=== PATIENT | female | born 1985 | race Caucasian/White ===

== ENCOUNTER 2017-02-09 00:25 | Outpatient (CLI) | payer MEDICAID ==
[~2017-02-09] VITALS: Ht 160 cm; Wt 78.7 kg
[2017-02-09 00:34] VITALS: Ht 160 cm; Wt 78.7 kg
[2017-02-09] MEDS ORDERED: PRENAT PO (00:53)
[2017-02-09] MEDS ORDERED: FERR325C PO (00:53)
[2017-02-09 00:58] VITALS: BP 116/64; PULSE 89; RESP 18
[2017-02-09 01:55] LABS: ADD UMIC NO; URINE BILIRUBIN (Dip) NEGATIVE (NEGATIVE); URINE BLOOD (Dip) NEGATIVE (NEGATIVE); URINE COLOR LT. YELLOW (YELLOW); URINE KETONES (Dip) NEGATIVE (NEGATIVE); URINE LEUKOCYTE ESTERASE (Dip) NEGATIVE (NEGATIVE); URINE NITRITE (Dip) NEGATIVE (NEGATIVE); URINE TOTAL PROTEIN (Dip) NEGATIVE (NEGATIVE); URINE UROBILINOGEN (Dip) 0.2 E.U./dL (0.1-1.0)
--- NOTE | 2017-02-09 04:11 | RADRPT ---
PROCEDURE: Biophysical profile. CLINICAL INDICATION: Pelvic pain. TECHNIQUE: Multiple sonographic images of the pelvis were obtained with transabdominal technique. COMPARISON: No prior studies are available for comparison. FINDINGS: There is a single living intrauterine gestation with the fetus in a vertex position. The placenta i s anterior in location, grade II. heart tones of 134 beats per minute are identified. There i s normal amniotic fluid volume with an DUDLEY of 13.1 cm. breathing movements = 2 Gross body movements = 2 tone = 2 Qualitative AFV = 2 IMPRESSION: Biophysical profile 8 out of 8. .Matthew Velásquez MD, MD Date Time Electronically viewed and signed by .Matthew Velásquez MD, MD on 02/09/2017 04:11 .T/
--- NOTE | 2017-02-09 04:21 | PN ---
Date/Time of Note Date/Time of Note DATE: 02/09/17 TIME: 04:17 OB Subjective Subjective Subjective 31 yo P2 @ 35.5 wks, w abdominal pain, r/o PTL good FM, no VB, no LOF OB Objective Objective Objective 106/53, 89, 18, 98.4 Abdomen- gravid, n/t SVE- l/c/p; unchanged after 2 hrs u/a neg Abdomen: WNL Cervical Dilatation: None Effacement: 0% Station: -3 Heart Rate: 120's Accelerations: Accelerations Present Decelerations: No Decelerations Varibility: Moderate Contractions on Admission: None Intensity: Mild OB Assessment/Plan Other Assessment: 31 yo P2 @ 35 wks, r/o PTL - reassuring satus - not in labor Other plan: d/c home f/u w her clinic MARY CANADA MD Feb 09, 2017 04:21
--- NOTE | 2017-02-09 05:35 | TRIAGE ---
OB Triage Datetime Report Generated by CPN: 02/09/2017 05:34 Datetime: 02/09/2017 04:20 Stage of : OB Triage Labor Evaluation Frequency: 0 Monitor Mode: External Resting Tone [place]: Relaxed Heart Rate FHR Baseline Rate: 120 Monitor Mode: External US Variability: Moderate 6-25 bpm Accelerations: 15X15 Decelerations: None Category: Category I Datetime: 02/09/2017 04:06 Stage of : OB Triage Datetime: 02/09/2017 03:22 Vaginal Exam Dilatation (cms): 0.0 Effacement (%): 50 Station: -3 Exam By: Lorraine SMITH Vaginal Bleeding: None Cervix, Consistency: Firm Cervix, Position: Posterior Presentation 'A': Cephalic Datetime: 02/09/2017 01:34 Stage of : OB Triage Labor Evaluation Frequency: irreg Monitor Mode: External Duration (sec)2399: 40-90 Pattern: Normal: <= 5 Contractions in 10 Minutes Resting Tone [place]: Relaxed Heart Rate FHR Baseline Rate: 135 Monitor Mode: External US Variability: Moderate 6-25 bpm Accelerations: 15X15 Decelerations: None Category: Category I Pain Assessment Pain Scale: 6 Pain Presence: Intermittent Pain Type: Contraction Pain Location: Abdomen Pain Goal: 3 Pain Relief Measures: Comfort Measures Datetime: 02/09/2017 01:32 Stage of : OB Triage Monitor Mode: External US Datetime: 02/09/2017 01:29 Monitor Mode: External Resting Tone [place]: Relaxed Heart Rate FHR Baseline Rate: 130 Monitor Mode: External US Variability: Moderate 6-25 bpm Accelerations: 15X15 Decelerations: None Category: Category I Datetime: 02/09/2017 01:11 Vaginal Exam Dilatation (cms): 0.0 Effacement (%): 50 Station: -3 Exam By: MSHAPIRO Vaginal Bleeding: None Cervix, Consistency: Firm Cervix, Position: Posterior Datetime: 02/09/2017 00:47 Stage of : OB Triage Datetime: 02/09/2017 00:37 Monitor Mode: External Datetime: 02/09/2017 00:32 Stage of : OB Triage Time of Arrival: 02/09/2017 01:08 EGA: 35.5 Arrived By: Wheelchair Arrived From: Home Chief Complaint: LOW ABD PAIN X 2HRS Movement: Present Initial Plan: VS, EFM, BPP, UA, SVE X 2 2HRS APART, PO HYDRATION Datetime: 02/09/2017 00:27 Stage of : OB Triage
== END 2017-02-09 04:30 | disposition home or self-care (01) ==
LOC: OBT 00:25 → L-D 00:27 → OBT 04:30
PROVIDERS: ATTEND Obstetrics & Gynecology
DX: O26.893 Other specified pregnancy related conditions, third trimester (principal); R10.9 Unspecified abdominal pain; Z3A.35 35 weeks gestation of pregnancy
CPT/HCPCS: 76818; 81003; Z7500; G0463

== ENCOUNTER 2017-03-18 11:04 | Inpatient (IN) | payer MEDICAID ==
[~2017-03-18] VITALS: Ht 157.5 cm; Wt 80.4 kg
[~2017-03-18 11:04] MED LIST: FERR325C PO; PRENAT PO
[2017-03-18 11:30] VITALS: BP 116/59; PULSE 96; Ht 157.5 cm; Wt 80.4 kg
--- NOTE | 2017-03-18 12:22 | RADRPT ---
PROCEDURE: US OB biophysical profile. CLINICAL INDICATION: evaluation TECHNIQUE: Multiple sonographic images of the pelvis were obtained. The images were reviewed on a PACS workstation. COMPARISON: Obstetrical ultrasound from 02/09/2017 FINDINGS: There is a single viable intrauterine gestation. Cardiac activity is present with 146 beats per min tracy. There is a vertex presentation. The placenta is anterior. There is no evidence of placental abruption. There is a low amount of amniotic fluid with an DUDLEY = 6.6 cm. Biophysical profile: movement 2/2 tone 2/2. breathing 2/2 DDULEY 2/2 Total 06/10 RPTAT: AA . IMPRESSION: Normal biophysical profile. Low DUDLEY of 6.6 cm. Physician Margaret Date Time Electronically viewed and signed by Physician Margaret on 03/18/2017 12:21 /
--- NOTE | 2017-03-18 12:49 | CONS ---
Date/Time of Note Date/Time of Note DATE: 03/18/17 TIME: 12:39 Consultation Date/Type/Reason Admit Date/Time March 18, 2017 at 12:30 Reason for Consultation This patient is a 31 years old 3 para 2 with estimated date of confinement of March 18, 2017, today She came to OB triage area to be evaluated for possible labor. Says she is having contractions every 10 minutes On examination she is a well-developed well-nourished lady at term Her general vital signs are normal. blood pressure 116/59, pulse rate 96, respiration 18, and temperature 98 On examination she does have contractions irregularly somewhere between 8-12 minutes. A pelvic examination was performed ;her cervix was 1 cm 50% effaced and -2 station Constitutional: No chills, No diaphoresis, No disoriented, No febrile, No improved, No no complaints, No other, No poor po, No requiring IVF, No requiring O2 Eyes: No discharge, No no complaints, No other, No pain, No redness, No visual change ENT: No bleeding, No congestion, No discharge, No dysphagia, No no complaints, No other, No pain, No sore throat Respiratory: No cough, No no complaints, No other, No pain, No pleuritic pain, No shortness of breath, No sputum, No wheezing Cardiovascular: No chest pain, No edema, No lightheadedness, No no complaints, No orthopenea, No other, No palpitations, No paroxysmal nocturnal dyspnea Gastrointestinal: No blood, No constipation, No decreased appetite, No diarrhea , No flatus, No nausea, No no complaints, No pain, No passing stool, No vomiting Genitourinary: other (As I mentioned on pelvic examination her cervix is 1 cm 50% effaced and at -2 station with intact membranes), No bleeding, No discharge, No dysuria, No flank pain, No hematuria, No no complaints Musculoskeletal: No back pain, No bone/joint pain, No neck pain, No no complaints, No other, No restricted range of motion, No swelling Skin: No bruising, No erythema, No laceration, No no complaints, No other, No pruritis, No rash, No skin lesions Neurologic: other (Knee-jerk reflexes normal), No confusion, No dizziness, No focal-weakness, No headache, No no complaints , No seizure, No syncope Endocrine: No dry skin, No no complaints, No other, No polydypsia, No polyuria , No temp intolerance Additional Comments On ultrasound study her biophysical profile was reported 06/10 with DUDLEY of 6.6 cm Due to the fact that she is at term and with fairly low DUDLEY and occasional contraction she will be admitted in the hospital for delivery Social History Smoking Status: Never smoker Exam/Review of Systems Vital Signs Vitals Vital Signs Date Time Temp Pulse Resp B/P Pulse Ox O2 Delivery O2 Flow Rate FiO2 03/18/17 11:30 98.0 96 116/59 VIKKI BOWMAN MD March 18, 2017 12:49
[2017-03-18] MEDS ORDERED: ACETAMINOPHEN/CODEINE #3 TAB PO PRN (13:30)
[2017-03-18] MEDS ORDERED: AMPICILLIN 2 GM/NS (PMX) 100 ML IV ONE (13:30)
[2017-03-18] MEDS ORDERED: LIDOCAINE 1% (MPF) 30 ML INJ INJ PRN (13:30)
[2017-03-18] MEDS ORDERED: OXYTOCIN 30 UNITS/LR 500 ML IV SCH ×3 (13:30)
[2017-03-18] MEDS ORDERED: BUTORPHANOL 2 MG INJ IV PRN ×2 (13:30)
[2017-03-18] MEDS ORDERED: OXYTOCIN 30 UNITS/LR 500 ML IV PRN (13:30)
[2017-03-18] MEDS ORDERED: LACTATED RINGER'S 1,000 ML IV PRN (13:30)
[2017-03-18] MEDS ORDERED: CARBOPROST 250 MCG INJ IM PRN (13:30)
[2017-03-18] MEDS ORDERED: MISOPROSTOL 200 MCG TAB PR PRN (13:30)
[2017-03-18] MEDS ORDERED: METHYLERGONOVINE 0.2 MG INJ IM PRN (13:30)
[2017-03-18] MEDS ORDERED: IBUPROFEN 600 MG TAB PO PRN (13:30)
[2017-03-18] MEDS: LACTATED RINGER'S 1,000 ML IV SCH ×2 (13:50→21:20)
[2017-03-18 13:51] LABS: ADD SCAN DIFF NO
[2017-03-18 13:53] LABS: BASOPHILS % 0.1 % (0.0-2.0); EOSINOPHILS # 0.2 10^3/ul (0.0-0.5); EOSINOPHILS % 2.9 % (0.0-7.0); HEMATOCRIT 29.7 % (37.0-47.0); LYMPHOCYTES # 1.9 10^3/ul (0.8-2.9); LYMPHOCYTES % 24.1 % (15.0-51.0); MEAN CORPUSCULAR HEMOGLOBIN 22.8 pg (29.0-33.0); MEAN CORPUSCULAR HGB CONC 30.3 g/dl (32.0-37.0); MEAN CORPUSCULAR VOLUME 75.2 fl (82.0-101.0); MONOCYTE # 0.6 10^3/ul (0.3-0.9); MONOCYTES % 7.6 % (0.0-11.0); NEUTROPHIL # 5.1 10^3/ul (1.6-7.5); NEUTROPHILS % 63.8 % (39.0-77.0); PLATELET COUNT 236 10^3/UL (140-415); RED BLOOD COUNT 3.95 10^6/ul (4.20-5.40); RED CELL DISTRIBUTION WIDTH 16.7 % (11.5-14.5)
[2017-03-18] MEDS ORDERED: ACETAMINOPHEN 325 MG TAB PO PRN (14:00)
[2017-03-18 14:08] LABS: INR 0.88; PROTIME 11.9 Sec (12.2-14.2); PT RATIO 0.9
[2017-03-18] MEDS: AMPICILLIN 1 GM/NS (PMX) 50 ML IV SCH ×2 (18:00→22:02)
[2017-03-18] MEDS ORDERED: EPHEDrine SULFATE 50 MG/5 ML SYG IV PRN (20:30)
[2017-03-18] MEDS ORDERED: ONDANSETRON 4 MG INJ IV PRN (20:30)
[2017-03-18] MEDS ORDERED: FENTAnyl 2MCG/ML-ROPIV 0.2% 100 ML BAG EPI SCH (20:30)
[2017-03-18] MEDS ORDERED: NALOXONE (0.4 MG/ML) INJ IV PRN (20:30)
--- NOTE | 2017-03-19 00:19 | HP ---
Date/Time of Note Date/Time of Note DATE: 03/19/17 TIME: 00:17 OB - History Hx of Present Chief Complaint: contractions Estimated Due Date: March 18, 2017 : 4 Para: 2 Spontaneous : 1 Therapeutic : 0 Care: Good Care Ultrasounds: Normal mid trimester US Obstetrical Complications: None Medical Complications: None Past Family/Social History * Past Medical, Surgical, Family and Obstetric Histories reviewed from chart. GBS Status: Unknown OB Admission Exam Vital Signs Vital Signs Vital Signs Date Time Temp Pulse Resp B/P Pulse Ox O2 Delivery O2 Flow Rate FiO2 03/18/17 11:30 98.0 96 116/59 Physical Exam HEENT: WNL Heart: Rhythm Normal Lungs: Clear Abdomen: WNL Extremities: Normal Cervical Dilatation: 1cm Membranes: Intact Heart Rate: 140's Accelerations: Accelerations Present Decelerations: No Decelerations Varibility: Moderate Last 72 hours Lab Results CBC & BMP 03/18/17 13:30 OB Assessment/Plan Reason for admission: induction of labor Plan: Induction Induction Method: per Pitocin Protocol NAM CARRASCO MD March 19, 2017 00:19
--- NOTE | 2017-03-19 00:21 | LDN ---
Date/Time of Note Date/Time of Note DATE: 03/19/17 TIME: 00:19 Delivery Summary Weeks of Gestation 40 weeks and 1 day Placenta Delivered: Spontaneously Meconium: none Episiotomy: No Perineal laceration: 0 Anesthesia type: Epidural Estimated blood loss: 200 Sponge & Needle done & correct: Yes All needle counts correct: Yes Any foreign bodies felt in the: No Problems: Delivery Information Sex Sex: female Apgars 1 Minute: 8 5 Minute: 9 Suctioning Nose & mouth suctioned at jl: Yes Delee suction performed: No Umbilical Cord Umbilical cord with: 3 Vessels Cord Blood was obtained: Yes Mother & Baby Disposition Disposition Mom & Baby to Maternity; Good: Yes NAM CARRASCO MD March 19, 2017 00:21
[2017-03-19] MEDS ORDERED: ACETAMINOPHEN 325 MG TAB PO PRN (00:30)
[2017-03-19] MEDS ORDERED: DIBUCAINE 1% 30 GM OINT PR PRN (00:30)
[2017-03-19] MEDS ORDERED: OXYTOCIN 30 UNITS/LR 500 ML IV PRN (00:30)
[2017-03-19] MEDS ORDERED: WITCH HAZEL/GLYCERIN PAD PR PRN (00:30)
[2017-03-19] MEDS ORDERED: CARBOPROST 250 MCG INJ IM PRN (00:30)
[2017-03-19] MEDS ORDERED: BENZOCAINE 20% 56 ML SPRAY TOP PRN (00:30)
[2017-03-19] MEDS ORDERED: METHYLERGONOVINE 0.2 MG INJ IM PRN (00:30)
[2017-03-19] MEDS ORDERED: ACETAMINOPHEN/CODEINE #3 TAB PO PRN (00:30)
[2017-03-19] MEDS ORDERED: MISOPROSTOL 200 MCG TAB PR PRN (00:30)
[2017-03-19 01:45] VITALS: BP 120/65; PULSE 58; RESP 19
[2017-03-19] MEDS: AMPICILLIN 1 GM/NS (PMX) 50 ML IV SCH (02:30)
[2017-03-19] MEDS: LACTATED RINGER'S 1,000 ML IV* SCH ×3 (02:30→16:21)
[2017-03-19 04:00] VITALS: BP 98/58; PULSE 74; RESP 18
[2017-03-19] MEDS: IBUPROFEN 600 MG TAB PO SCH ×4 (05:26→23:27)
[2017-03-19 08:00] VITALS: BP 110/66; PULSE 60; RESP 18
[2017-03-19] MEDS: SENNA/DOCUSATE NA (8.6MG/50MG) TAB PO SCH ×2 (09:51→21:21)
[2017-03-19] MEDS ORDERED: LANOLIN 7 GM TUBE TOP PRN (12:30)
[2017-03-19 15:55] VITALS: BP 110/61; PULSE 60; RESP 18
[2017-03-19 20:15] VITALS: BP 108/56; PULSE 64; RESP 20
[2017-03-20] MEDS: LACTATED RINGER'S 1,000 ML IV* SCH ×3 (00:21→10:23)
[2017-03-20 04:05] VITALS: BP 109/64; PULSE 64; RESP 18
[2017-03-20] MEDS: IBUPROFEN 600 MG TAB PO SCH ×4 (05:41→23:25)
[2017-03-20 08:19] LABS: ADD SCAN DIFF NO
[2017-03-20 08:30] VITALS: BP 102/60; PULSE 70; RESP 19
[2017-03-20 08:31] LABS: BASOPHILS % 0.2 % (0.0-2.0); EOSINOPHILS # 0.3 10^3/ul (0.0-0.5); EOSINOPHILS % 3.7 % (0.0-7.0); HEMATOCRIT 26.5 % (37.0-47.0); HEMOGLOBIN 8.1 g/dl (12.0-16.0); LYMPHOCYTES # 2.5 10^3/ul (0.8-2.9); LYMPHOCYTES % 31.1 % (15.0-51.0); MEAN CORPUSCULAR HEMOGLOBIN 23.2 pg (29.0-33.0); MEAN CORPUSCULAR HGB CONC 30.6 g/dl (32.0-37.0); MEAN CORPUSCULAR VOLUME 75.9 fl (82.0-101.0); MEAN PLATELET VOLUME 11.8 fl (7.4-10.4); MONOCYTE # 0.6 10^3/ul (0.3-0.9); MONOCYTES % 7.4 % (0.0-11.0); NEUTROPHIL # 4.6 10^3/ul (1.6-7.5); NEUTROPHILS % 56.4 % (39.0-77.0); PLATELET COUNT 211 10^3/UL (140-415); RED BLOOD COUNT 3.49 10^6/ul (4.20-5.40); RED CELL DISTRIBUTION WIDTH 16.7 % (11.5-14.5); WHITE BLOOD COUNT 8.1 10^3/ul (4.8-10.8)
[2017-03-20] MEDS: SENNA/DOCUSATE NA (8.6MG/50MG) TAB PO SCH ×2 (10:18→21:11)
[2017-03-20 16:00] VITALS: BP 111/58; PULSE 60; RESP 18
[2017-03-20 19:45] VITALS: BP 118/62; PULSE 109; RESP 20
--- NOTE | 2017-03-20 20:37 | PN ---
Date/Time of Note Date/Time of Note DATE: 03/20/17 TIME: 20:31 OB Subjective Subjective Subjective ppd 1 afebrile abd.soft uterus firm lochia normal ext nl . Laboratory Tests Test 03/20/17 07:16 White Blood Count 8.110^3/ul Red Blood Count 3.4910^6/ul Hemoglobin 8.1g/dl Hematocrit 26.5% Mean Corpuscular Volume 75.9fl Mean Corpuscular Hemoglobin 23.2pg Mean Corpuscular Hemoglobin Concent 30.6g/dl Red Cell Distribution Width 16.7% Platelet Count 47879^3/UL Mean Platelet Volume 11.8fl Neutrophils % 56.4% Lymphocytes % 31.1% Monocytes % 7.4% Eosinophils % 3.7% Basophils % 0.2% Nucleated Red Blood Cells % 0.0/100WBC Neutrophils # 4.610^3/ul Lymphocytes # 2.510^3/ul Monocytes # 0.610^3/ul Eosinophils # 0.310^3/ul Basophils # 0.010^3/ul Nucleated Red Blood Cells # 0.010^3/ul Current Medications Medications (Trade) Dose Ordered Sig/Foster Route PRN Reason Start Time Stop Time Status Last Admin Dose Admin Lactated Ringer's 1,000 ml @ 125 mls/hr Q8H IV 03/18/17 13:20 03/19/17 02:51 DC 03/18/17 13:50 Ampicillin 100 ml @ 100 mls/hr ONCE ONCE IV 03/18/17 13:30 03/18/17 14:29 DC 03/18/17 13:58 Ampicillin 50 ml @ 100 mls/hr Q4H IV 03/18/17 17:30 03/19/17 02:51 DC 03/18/17 22:02 Oxytocin/Lactated Ringer's 500 ml @ 0 mls/hr TITRATE IV 03/18/17 13:30 03/18/17 14:05 Butorphanol Tartrate (Stadol) 1 mg Q2H PRN IV PAIN 03/18/17 13:30 Butorphanol Tartrate (Stadol) 2 mg Q2H PRN IV PAIN 03/18/17 13:30 03/18/17 19:04 Lidocaine 30 ml 30 ml ONCE PRN INJ EPISIOTOMY/TEARING 03/18/17 13:30 Oxytocin/Lactated Ringer's 500 ml @ 125 mls/hr ONCE -MAY REPEAT X1 IV 03/18/17 13:30 Oxytocin/Lactated Ringer's 500 ml @ 125 mls/hr ONCE IV 03/18/17 13:30 03/19/17 00:25 Ibuprofen (Motrin) 600 mg ONCE PRN PO Mild Pain (Pain Score 1-3) 03/18/17 13:30 Acetaminophen/ Codeine Phosphate 2 tab 2 tab ONCE PRN PO Moderate to Severe Pain (4-10) 03/18/17 13:30 03/19/17 09:55 Lactated Ringer's 1,000 ml @ 2,000 mls/hr Q30M PRN IV PRE-EPIDURAL BOLUS 03/18/17 13:30 03/18/17 20:06 Oxytocin/Lactated Ringer's 500 ml @ 0 mls/hr ONCE PRN IV For Hemorrhage Management 03/18/17 13:30 Methylergonovine Maleate (Methergine) 0.2 mg ONCE PRN IM VAGINAL BLEEDING 03/18/17 13:30 Carboprost Tromethamine (Hemabate) 250 mcg ONCE PRN IM VAGINAL BLEEDING 03/18/17 13:30 Misoprostol (Cytotec) 1,000 mcg ONCE PRN NE VAGINAL BLEEDING 03/18/17 13:30 Acetaminophen (Tylenol Tab) 650 mg Q6H PRN PO PAIN AND OR ELEVATED TEMP 03/18/17 14:00 03/18/17 14:12 Naloxone HCl (Narcan) 0.1 mg Q2M PRN IV FOR RESP RATE 8 OR LESS 03/18/17 20:30 03/19/17 20:29 DC Ondansetron HCl (Zofran Inj) 4 mg Q6H PRN IV NAUSEA AND/OR VOMITING 03/18/17 20:30 03/19/17 20:29 DC Fentanyl/ Ropivacaine 100 ml EPIDURAL INFUSION EPI 03/18/17 20:30 Ephedrine Sulfate 5 mg 5 mg PRN PRN IV BLOOD PRESSURE SUPPORT 03/18/17 20:30 Lactated Ringer's (Lr) 1,000 ml @ 125 mls/hr Q8H IV* 03/19/17 00:21 03/19/17 04:29 Ibuprofen (Motrin) 600 mg Q6 PO 03/19/17 06:00 03/20/17 18:15 Acetaminophen (Tylenol Tab) 650 mg Q4H PRN PO PAIN LEVEL 1-5 03/19/17 00:30 Acetaminophen/ Codeine Phosphate (Tylenol No.3) 1 tab Q4H PRN PO PAIN LEVEL 1-5 03/19/17 00:30 Senna/Docusate Sodium (Senokot-S) 1 tab BID PO 03/19/17 09:00 03/20/17 10:18 Witch Janna/ Glycerin (Tucks Pads) 1 pad BEDSIDE MEDICATION PRN NE HEMORRHOID/EPISIOTMY PAIN 03/19/17 00:30 03/19/17 04:29 Benzocaine (Dermoplast [place]) 1 spray BEDSIDE MEDICATION PRN TOP HEMORRHOID/EPISIOTMY PAIN 03/19/17 00:30 03/19/17 04:30 Dibucaine (Nupercainal) 1 applic BEDSIDE MEDICATION PRN NE HEMORRHOID/EPISIOTMY PAIN 03/19/17 00:30 Diphtheria/ Tetanus/Acell Pertussis 0.5 ml 0.5 ml ONCE ONCE IM* 03/21/17 09:00 03/21/17 09:01 Oxytocin/Lactated Ringer's 500 ml @ 0 mls/hr ONCE PRN IV For Hemorrhage Management 03/19/17 00:30 Methylergonovine Maleate (Methergine) 0.2 mg ONCE PRN IM VAGINAL BLEEDING 03/19/17 00:30 Carboprost Tromethamine (Hemabate) 250 mcg ONCE PRN IM VAGINAL BLEEDING 03/19/17 00:30 Misoprostol (Cytotec) 1,000 mcg ONCE PRN NE VAGINAL BLEEDING 03/19/17 00:30 Lanolin (Fyj-A-Whzuha) 1 applic BEDSIDE PRN TOP BEDSIDE FOR ASHLYN TO NIPPLES 03/19/17 12:30 03/19/17 12:24 STEFAN MATA MD March 20, 2017 20:37
[2017-03-21 04:15] VITALS: BP 96/56; PULSE 62; RESP 18
[2017-03-21] MEDS: IBUPROFEN 600 MG TAB PO SCH ×3 (05:43→17:51)
[2017-03-21 08:30] VITALS: BP 96/51; PULSE 56; RESP 16
--- NOTE | 2017-03-21 08:49 | PD.PPDC ---
CHIEF CRNA Discharge Instruction Condition Patient Condition: Good Diet Diet: Resume Regular Diet Activity/Restrictions Activity: Normal Activity May Shower Restrictions: No Exercising No Lifting No Driving No Sexual Activity Nothing in the Vagina No [place] No Tampons, douche Follow-up Follow-up with Physician: 2, Week/Weeks Provider Information: Appointment clinic in 2 weeks for check Return to clinic for CLINICAL LABORATORY AIDE Instructions: Fever greater than 101 Chills Worsening abdominal pain Excessive Vaginal Bleeding More than 2 pads per hour Unable to tolerate diet OB Instructions: Breast Tenderness Depression Blurried Vision Headache STEFAN MATA MD March 21, 2017 08:49
--- NOTE | 2017-03-21 08:52 | DS ---
Date/Time of Note Date/Time of Note DATE: 03/21/17 TIME: 08:50 Discharge Summary Admission/Discharge Info Admit Date/Time March 18, 2017 at 12:30 Discharge Date/Time March 21, 2017 at 8: 45 Final Diagnosis Day 2 post normal vaginal delivery Procedures Normal spontaneous vaginal delivery Hx of Present Illness Term Hospital Course Satisfactory uneventful Home Meds Reported Medications Ferrous Sulfate (Iron) 325 Mg Capsule.er, 325 MG PO DAILY, CAP 02/09/17 Multivit/Min/Fol Ac/Iron/Pren* ( S*) 1 Tab Tab, 1 TAB PO DAILY, TAB 02/09/17 Follow-up Plan Appointment clinic in 2 weeks Primary Care Provider Care Physician No Primary Time spent on discharge: > 30 minutes STEFAN MATA MD March 21, 2017 08:52
[2017-03-21] MEDS ORDERED: DIPHTH/TET/ACEL PERTUSS (ADULT) 0.5 ML VIAL IM* ONE (09:00)
[2017-03-21] MEDS: SENNA/DOCUSATE NA (8.6MG/50MG) TAB PO SCH (09:00)
== END 2017-03-21 18:43 | disposition home or self-care (01) | DRG 775 ==
LOC: OBT 11:04 → L-D 11:08 → OBT 12:30 → L-D 13:12 → PP1 03-19 02:01
PROVIDERS: ADMIT Obstetrics & Gynecology; ATTEND Obstetrics & Gynecology
PROC: 10E0XZZ Delivery of Products of Conception, External Approach (ICD-10-PCS; principal; 2017-03-19)
PROC: 3E00X4Z Introduction of Serum, Toxoid and Vaccine into Skin and Mucous Membranes, External Approach (ICD-10-PCS; 2017-03-21)
DX: O48.0 Post-term pregnancy (principal); Z23 Encounter for immunization; Z3A.40 40 weeks gestation of pregnancy; Z37.0 Single live birth
CPT/HCPCS: 62319; 76818; 85025; 85610; 85730; 86592; 86900; 86901; 90715; G0463; J0290; J2590; J3010; J7120

== ENCOUNTER 2017-06-12 22:36 | Emergency (ER) | payer MEDICAID ==
[~2017-06-12] VITALS: Wt 78.0 kg
--- NOTE | 2017-06-13 01:15 | ERD ---
ER Documentation Chief Complaint Date/Time DATE: 06/13/17 Chief Complaint Eye redness HPI The patient is a 31-year-old female who presents to the Emergency Department with complaint of bilateral eye redness. The patient reports that her symptoms initially began on Friday, with onset of erythema and purulent discharge from the right eye. The next morning she noted similar symptoms to the left eye, with matting and crusting of the eyelids upon waking up in the morning. She continues to experience discharge from both eyes, that returns despite being washed away. Additionally, she reports a burning and itching sensation to both eyes. She denies any visual changes, diplopia, blurred vision, vision loss. Denies any trauma or injury to the eyes. Denies any foreign bodies or foreign body sensation to the eye. Denies any fevers, sweats, chills, nausea, vomiting, rhinorrhea, nasal congestion, sore throat, ear pain, neck pain, neck stiffness or new rashes. Denies any contacts with similar symptoms. ROS All systems reviewed and are negative except as per history of present illness. Medications Home Meds Active Scripts Loratadine* (Loratadine*) 10 Mg Tablet, 10 MG PO DAILY, #30 TAB Prov:BETTY BERGER PA-C 06/13/17 Gentamicin Sulfate* (Gentamicin Sulfate* Ophth) 0.3% - 5 Ml Drops, 1 DROP BOTH EYES Q4 for 7 Days, EA Prov:BETTY BERGER PA-C 06/13/17 Naphazoline Hcl/Phenir Mal (Naphcon-A Eye Drops) 15 Ml Drops, 1 DROP OP Q6 for 7 Days, BOTTLE Prov:BETTY BERGER PA-C 06/13/17 Reported Medications Ferrous Sulfate (Iron) 325 Mg Capsule.er, 325 MG PO DAILY, CAP 02/09/17 Multivit/Min/Fol Ac/Iron/Pren* ( S*) 1 Tab Tab, 1 TAB PO DAILY, TAB 02/09/17 Allergies Allergies: Coded Allergies: No Known Drug Allergies (Verified Allergy, Unknown, 02/09/17) Physical Exam Vitals Vital Signs Date Time Temp Pulse Resp B/P Pulse Ox O2 Delivery O2 Flow Rate FiO2 06/12/17 22:45 97.9 65 20 112/55 99 Physical Exam Const: Well-developed, well-nourished, in no acute distress. Head: Atraumatic Eyes: Bilateral conjunctival injection, chemosis and erythema. Discharge noted in the eyelid margins and near the medial canthus of the eyes. No pain with eye movement. No proptosis. No periorbital swelling or erythema. No crepitus. No foreign bodies noted on eyelid eversion. No scleral icterus. Vision grossly intact. ENT: Normal External Ears, Nose and Mouth. Clear oropharynx. Neck: Supple. Full range of motion. Resp: Normal respiratory effort. Cardio: Normal peripheral perfusion. Abd: Soft, non tender, non distended. Skin: No petechiae or rashes Ext: No clubbing, cyanosis, or edema. Neur: Awake. Alert. Psych: Cooperative. Appropriate Procedures/MDM This is a 31-year-old female presenting to the Emergency Department with complaint of eye redness and discharge for the past two days. On physical examination, the patient had conjunctival erythema, injection and chemosis of the eyes, with discharge noted in the eyelid margins/corner, near the medial canthus. Otherwise, she had no pain with eye movement, no proptosis, no scleral icterus. No periorbital edema or erythema were noted. No foreign bodies seen on eyelid eversion. The differential diagnosis includes, but is not limited to, viral infection, viral conjunctivitis, bacterial conjunctivitis, allergic conjunctivitis, reactive arthritis, keratoconjunctivitis sicca, chemical irritant, uveitis, glaucoma, foreign body, corneal abrasion/ulceration , keratitis, scleritis, episcleritis, dacryocystitis, trauma, subconjunctival hemorrhage, hordeolum, chalazion, blepharitis. There is no current evidence of intra-ocular trauma. No clinical findings of periorbital/orbital cellulitis. After rest, the patient reports no new complaints. Upon my review and interpretation of the patient's presentation, I believe the patient's symptoms are most consistent with acute conjunctivitis, bacterial vs. allergic. At this time, the patient is in stable condition and therefore can be discharged home with a prescription for Gentamicin ophthalmic, Naphcon-A and Loratadine and given strict return precautions for signs of deteriorating or worsening condition. The patient is instructed to follow up with their primary medical provider and/or medicare sales representative within 2-3 days for reevaluation and further management or return to the ER sooner for any persistent, new or worsening symptoms. I shared my medical decision making and plan with the patient, and she verbally understands and agrees with the plan for further observation and care as an outpatient. At the time of discharge all questions were answered. Departure Diagnosis: Primary Impression: Acute conjunctivitis of both eyes Acute conjunctivitis type: unspecified Qualified Code: H10.33 - Acute conjunctivitis of both eyes, unspecified acute conjunctivitis type Condition: Stable Patient Instructions: Conjunctivitis Caused by Infection, Conjunctivitis Caused by Irritation, Conjunctivitis, Non-Specific, What Is Conjunctivitis? Referrals: [facility] Additional Instructions: Llame al doctor MAANA y corona jerry ALAINA PARA DENTRO DE 1-2 FOLEY.Dgale a la secretaria que nosotros le instruimos hacer esta alaina.Avise o llame si gongora condicin se empeora antes de la alaina. Regresa aqui si peor o no mejor. BETTY BERGER PA-C Jun 13, 2017 01:15
[2017-06-13] MEDS ORDERED: GENT5DRO28 BOTH EYES (01:16)
[2017-06-13] MEDS ORDERED: NAPH15DR OP (01:16)
[2017-06-13] MEDS ORDERED: LORA10TA3 PO (01:17)
== END 2017-06-13 02:13 | disposition home or self-care (01) ==
LOC: FTE 22:36
DX: H10.33 Unspecified acute conjunctivitis, bilateral (principal)
CPT/HCPCS: 99283

== ENCOUNTER 2018-01-27 11:58 | Emergency (ER) | END 2018-01-27 15:56 | disposition home or self-care (01) ==

== ENCOUNTER 2019-05-14 19:38 | Emergency (ER) | payer MEDICAID ==
[~2019-05-14] VITALS: Ht 154.9 cm; Wt 75.1 kg
[~2019-05-14 19:38] MED LIST changes: +GENT5DRO28 BOTH EYES; +IBUP-1542 PO; +LORA10TA3 PO; +NAPH15DR OP; +ORPH100T PO
[2019-05-14 19:47] VITALS: BP 121/68; PULSE 75; RESP 18; Ht 154.9 cm; Wt 75.1 kg
[2019-05-14] MEDS ORDERED: ACETAMINOPHEN 325 MG TAB PO STA (22:52)
[2019-05-15] MEDS ORDERED: ACET500C5 PO (01:59)
--- NOTE | 2019-05-15 05:03 | ERD ---
ER Documentation Chief Complaint Chief Complaint vag bleed/back, abd pain since 3 pm, states 6 weeks HPI This is a 33-year-old Guyanese-speaking female presents to the ED complaining of vaginal bleeding and pelvic pain since yesterday. She states she found out she was 2 weeks ago. She states she usually has irregular menstrual cycles and does not remember when her last menstrual cycle was. She states she started bleeding vaginally yesterday, which became progressively worse today. She reports bleeding clots today. She denies feeling lightheaded or dizzy. Denies any nausea or vomiting. Denies urinary symptoms. No fevers. ROS All systems reviewed and are negative except as per history of present illness. Medications Home Meds Active Scripts Acetaminophen* (Tylophen*) 500 Mg Capsule, 1 CAP PO Q6H PRN for PAIN AND OR ELEVATED TEMP, #20 CAP Prov:JIMMY JOSE PA-C 05/15/19 Orphenadrine Citrate (Norflex) 100 Mg Tablet.sa, 100 MG PO BID for 7 Days, TAB.SA Prov:GIRISH MARIN 01/27/18 Ibuprofen* (Motrin*) 600 Mg Tab, 600 MG PO Q6, #30 TAB Prov:GIRISH MARIN 01/27/18 Loratadine* (Loratadine*) 10 Mg Tablet, 10 MG PO DAILY, #30 TAB Prov:BETTY BERGER PA-C 06/13/17 Gentamicin Sulfate* (Gentamicin Sulfate* Ophth) 0.3% - 5 Ml Drops, 1 DROP BOTH EYES Q4 for 7 Days, EA Prov:BETTY BERGER PA-C 06/13/17 Naphazoline Hcl/Phenir Mal (Naphcon-A Eye Drops) 15 Ml Drops, 1 DROP OP Q6 for 7 Days, BOTTLE Prov:BETTY BERGER PA-C 06/13/17 Reported Medications Ferrous Sulfate (Iron) 325 Mg Capsule.er, 325 MG PO DAILY, CAP 02/09/17 Multivit/Min/Fol Ac/Iron/Pren* ( S*) 1 Tab Tab, 1 TAB PO DAILY, TAB 02/09/17 Allergies Allergies: Coded Allergies: No Known Drug Allergies (Verified Allergy, Unknown, 02/09/17) PMhx/Soc Medical and Surgical Hx: pt denies Medical Hx, pt denies Surgical Hx History of Surgery: No Anesthesia Reaction: No Hx Neurological Disorder: No Hx Respiratory Disorders: No Hx Cardiac Disorders: No Hx Psychiatric Problems: No Hx Miscellaneous Medical Probl: No Hx Alcohol Use: No Hx Substance Use: No Hx Tobacco Use: No Smoking Status: Never smoker FmHx Family History: No diabetes Physical Exam Vitals Vital Signs Date Temp Pulse Resp B/P (MAP) Pulse Ox O2 O2 Flow FiO2 Time Delivery Rate 05/14/19 98.6 75 18 121/68 100 19:47 (85) Physical Exam Const: No acute distress Head: Atraumatic Eyes: Normal Conjunctiva ENT: Normal External Ears, Nose and Mouth. Neck: Full range of motion. No meningismus. Resp: Clear to auscultation bilaterally Cardio: Regular rate and rhythm, no murmurs Abd: Soft, non tender, non distended. Normal bowel sounds Skin: No petechiae or rashes Back: No midline or flank tenderness Ext: No cyanosis, or edema Neur: Awake and alert Psych: Normal Mood and Affect Result Diagram: 05/14/19 2253 Results 24 hrs Laboratory Tests Test 05/14/19 22:59 White Blood Count 10.3 10^3/ul Red Blood Count 4.60 10^6/ul Hemoglobin 11.7 g/dl Hematocrit 37.7 % Mean Corpuscular Volume 82.0 fl Mean Corpuscular Hemoglobin 25.4 pg Mean Corpuscular Hemoglobin Concent 31.0 g/dl Red Cell Distribution Width 14.8 % Platelet Count 297 10^3/UL Mean Platelet Volume 10.6 fl Immature Granulocytes % 0.500 % Neutrophils % 63.3 % Lymphocytes % 27.9 % Monocytes % 5.2 % Eosinophils % 2.9 % Basophils % 0.2 % Nucleated Red Blood Cells % 0.0 /100WBC Immature Granulocytes # 0.050 10^3/ul Neutrophils # 6.6 10^3/ul Lymphocytes # 2.9 10^3/ul Monocytes # 0.5 10^3/ul Eosinophils # 0.3 10^3/ul Basophils # 0.0 10^3/ul Nucleated Red Blood Cells # 0.0 10^3/ul Urine Color VIELKA Urine Clarity CLOUDY Urine pH 6.0 Urine Specific [place] 1.033 Urine Ketones NEGATIVE mg/dL Urine Nitrite NEGATIVE mg/dL Urine Bilirubin NEGATIVE mg/dL Urine Urobilinogen 1+ mg/dL Urine Leukocyte Esterase NEGATIVE Edson/ul Urine Microscopic RBC > 182 /HPF Urine Microscopic WBC 9 /HPF Urine Squamous Epithelial Cells FEW /HPF Urine Bacteria FEW /HPF Urine Mucus MANY /HPF Urine Hemoglobin 3+ mg/dL Urine Glucose NEGATIVE mg/dL Urine Total Protein 2+ mg/dl Beta HCG, Quantitative 3791.4 mIU/ml Current Medications Medications Dose Sig/Foster Start Time Status Last (Trade) Ordered Route PRN Stop Time Admin Dose Reason Admin 650 mg ONCE STAT 05/14/19 DC 05/14/19 Acetaminophen PO 22:52 23:05 (Tylenol 05/14/19 22:53 Tab) Procedures/MDM LABS & DIAGNOSTIC IMAGING: CBC: Mild anemia with hemoglobin of 11 hC Urine: + Hematuria PROCEDURES: ROCEDURE: US OB. CLINICAL INDICATION: . Irregular bleeding. FINDINGS: An intrauterine probable early gestational sac with irregular borders in the endocervical canal at 11.9 mm is identified, corresponding to 6 weeks 0 days size.. A yolk sac is present. No pole or cardiac activity is detected. No subchorionic hemorrhage is identified. Right ovary is normal in appearance with vascular flow. Left ovary is not identified. There is no adnexal mass or free fluid. IMPRESSION: Irregular intrauterine sac-like structure at the endocervical canal at 6 weeks 0 days size without pole or heart motion, likely represents an early intrauterine . Positioned endocervical canal suggesting spontaneous in progress. No adnexal mass or free fluid to suggest ectopic . Right ovary not visualized. ED COURSE: The patient was given Tylenol The medication was well tolerated and the patient had market improvement in symptoms. The patient remained stable throughout ED course. MEDICAL DECISION MAKIN-year-old female at approximately 6 weeks gestation presents with vagi nal bleeding and clotting. Labs without any signs of infection, dehydration or significant anemia. Her serum HCG was 3791. US showed an intrauterine sac without pole or heart activity. Discussed with patient differential diagnosis of spontaneous and complete . Ectopic is also on the differential however unlikely. She was told to follow-up with her MANAGER OF CASE in 48 hours for repeat hCG, if she is unable to see her MANAGER OF CASE she was told to return here. Her Rh was positive and she does not require Rhogam. Strict return precautions given. PRESCRIPTIONS: Tylenol SPECIALIST FOLLOW UP RECOMMENDED: MANAGER OF CASE Departure Diagnosis: Primary Impression: Spontaneous Condition: Stable Patient Instructions: Bleeding During Early , Miscarriage, Spontaneous (Completed) Referrals: MANAGER OF CASE [place] [id number] [facility] [address] [place] [address] OFFICE FAX , [facility] [address] [place] [address] [address] [address] [place] [address] [address] BOWMAN, [facility] [address] [facility] [facility] [address] [address] [facility] [address] [place] [address] [facility] [address] [place] [address] [phone] [address] [facility] [address] - [address] KOROMA ADRI[address]N [address] [facility] [address] [address], [place] [address] [facility]. [address], [facility] [address] [address] [facility] [address] [place], [place] [id number] Additional Instructions: Return here in 48 hours for recheck of your beta hCG levels. You can also see your MANAGER OF CASE doctor as well. You can take copies of the ultrasound report with you. JIMMY JOSE PA-C May 15, 2019 05:03
== END 2019-05-15 02:14 | disposition home or self-care (01) ==
LOC: FTE 19:38
DX: O03.9 Complete or unspecified spontaneous abortion without complication (principal); R10.2 Pelvic and perineal pain; Z3A.01 Less than 8 weeks gestation of pregnancy
CPT/HCPCS: 36415; 76801; 76817; 81001; 84702; 85025; 86900; 86901; Z7502; Z7610